=== PATIENT | male | born 1965 | race Caucasian/White ===

== ENCOUNTER 2017-03-28 11:05 | Emergency (ER) | payer OTHER ==
--- NOTE | 2017-03-28 11:30 | ED GENERAL ADULT ---
History of Present Illness General Chief Complaint: Syncope and Near-Syncope Stated Complaint: NEAR SYNCOPE Source: patient, EMS Exam Limitations: no limitations Vital Signs & Intake/Output Vital Signs & Intake/Output Vital Signs Date Time Temp Pulse Resp B/P B/P Pulse O2 O2 Flow FiO2 Mean Ox Delivery Rate 03/28 1436 68 122/80 03/28 1312 96.1 65 19 168/98 97 Room Air 03/28 1146 98 Room Air 03/28 1109 98.0 73 20 170/96 98 Room Air Allergies Coded Allergies: wheat (CILIA 03/28/17) Reconcile Medications No Known Home Medications Triage Note: PT BIBA FOR NEAR SYNCOPE AT DENTIST OFFICE. PT WAS MEDICATED WITH NOVACAINE FOR A ROOT CANAL AND STARTED TO FEEL LIGHT HEADED AND HAVE PALITATIONS. ON ARRIVAL PT HAS NO COMPLAINTS AND IS ANNOYED HE IS IN ER AND DID NOT GET HIS ROOT CANAL. PT DENIES CHEST PAIN AND SOB Triage Nurses Notes Reviewed? yes Onset: Just prior to arrival Duration: waxing and waning (20 min) Timing: remote history Injury Environment: dentist Severity: moderate Severity Numbers: 8 Modifying Factors: Improves With: other (time). HPI: Patient is a 51-year-old male with remote history of anxiety, history of celiac disease presenting to the emergency department complaint of lightheadedness, palpitations, dizziness, right posterior shoulder and bilateral neck pain that got worse morning he was at the dentist. Patient reports that he's been doing with right shoulder and right upper back pain for the past 2 months constantly. Also dealing with right-sided rib pain for the past 2 months, has been seeing a chiropractor with no relief. Denies any specific trauma but does report that he is very active. Denies any shortness of breath with this episode today. He feels like all the symptoms resolved but still remained slightly dizzy. He does report blurred vision that lasted a few seconds at the dentist but that had resolved. Patient reports no anxiety about going to the dentist. He has been looking for to getting a root canal done because he's been dealing with dental pain for the past several months. No nausea or vomiting. Denies any headaches. No actual syncopal event. The last time he saw a doctor was about a year and a half ago and it was for fatigue and they did a Lyme titer test which was negative. Patient reports he has not noticed any rashes. He does get bitten by ticks off and no. Denies any abdominal pain. Denies any diarrhea. No recent travel. No recent antibiotic use. Patient states that he was walking into the dentist office and started getting some nasal congestion, positive history of seasonal allergies and thought this was an exacerbation of that when he got out of the scar at the dentist. He walked in, started feeling hot and cold in the waiting room, proceeded to go back into the exam room, they injected him with lidocaine and then he became dizzy while he was laying on the exam table. Patient tried getting up and walking around to see if that would help with his symptoms, he also tried drinking water. Symptoms seem to come and go over a 20 minute time period. Denies any chest pain with this. Positive palpitations. Was feeling fine prior to arriving at the dentist office. Symptoms seemed to get slightly worse with positional changes. Denies any history of blood clots. Unsure of family history. Patient has positive history of skin cancer, uncertain what type which was removed on his right cheek several years ago. No complications since then. Patient also reports numbness and tingling that radiates to the right third fourth and fifth fingers intermittently that has been going on 2-3 months. (MARCELINO SPEARS) Past History Travel History Traveled to [place] past 21 day No Medical History Any Pertinent Medical History? see below for history Neurological: NONE EENT: NONE Cardiovascular: NONE Respiratory: NONE Gastrointestinal: NONE Hepatic: NONE Renal: NONE Musculoskeletal: NONE Psychiatric: NONE Endocrine: NONE Surgical History Surgical History: skin cancer removal on right cheek Psychosocial History What is your primary language Beninese Tobacco Use: Never used Family History Hx Contributory? No (MARCELINO SPEARS) Review of Systems Review of Systems Constitutional: Reports: malaise. Comments Review of systems: See HPI, All other systems negative. Constitutional, no weight loss HEENT: No visual changes no sore throat no congestion Cardiovascular: No chest pain , orthopnea or ankle swelling Skin, no jaundice no rashes Respiratory: No dyspnea cough sputum or hemoptysis GI: No nausea no vomiting : No dysuria No hematuria Muscle skeletal: Positive bilateral neck pain and right upper back pain Neurologic: No numbness no confusion, no headaches Psych: No increased stress anxiety or depression,. Heme/endocrine: No bruising no bleeding no polyuria or polydipsia Immunology: No splenectomy or history of AIDS (MARCELINO SPEARS) Physical Exam Physical Exam General Appearance: well developed/nourished, no apparent distress, alert, awake , comfortable Comments: Well-developed well-nourished person in no acute distress HEENT: Normal EENT exam, extraocular motion intact, no nystagmus. Pupils equally round and reactive to light and accommodation. Nose is atraumatic. External auditory canal and Tympanic membranes clear. Pharynx normal. No swelling or edema. Neck: Supple, no lymphadenopathy, normal range of motion without pain or tenderness, no carotid bruits to auscultation bilaterally. Back: Mild reproducible pain to palpation over the right scapular region., no CVA tenderness. Full range of motion Cardiovascular: Regular rate and rhythms no murmurs rubs or gallops, normal JVP Respiratory: Chest mild reproducible pain over the right lateral chest wall. No signs of rash or trauma in this area.. No respiratory distress.breath sounds clear to auscultation bilaterally Abdomen: Soft, nontender nondistended, no appreciable organomegaly. Normal bowel sounds. No ascites, no rebound or guarding. No palpable hernias. Extremity: No edema, no calf tenderness to palpation, normal and equal pulses. Negative Homans sign bilaterally. Muscular strength in the upper and lower extremities are equal and symmetric bilaterally, 5 out of 5. Neuro: Alert oriented x3, motor sensory normal, cranial nerves II through XII grossly intact. Cerebellar testing is unremarkable. Able to perform rapid alternating hand movements without difficulty. Heel to moser testing bilaterally unremarkable. Skin: No appreciable rash on exposed skin, skin is warm and dry.Surgical scar noted over the right maxillary region, no surrounding erythema or edema. Psych: Mood and affect is normal, memory and judgment is normal. Core Measures ACS in differential dx? No CVA/TIA Diagnosis: No Severe Sepsis Present: No Septic Shock Present: No (MARCELINO SPEARS) Progress Differential Diagnoses I considered the following diagnoses in my evaluation of the patient: CVA, TIA, orthostatic hypotension, anemia, Lyme disease, pulmonary embolus, dehydration, electrolyte abnormality, cardiac arrhythmia, cervical radiculopathy, thyroid dysfunction Plan of Care: Orders Procedure Date/time Status TROPONIN LEVEL 03/28 1530 Active Add-on Test (ER Only) 03/28 1233 Active Add-on Test (ER Only) 03/28 1131 Active Add-on Test (ER Only) 03/28 1130 Active LIPID PANEL 03/28 1122 Complete LACTIC ACID 03/28 1122 Complete D-DIMER 03/28 1122 Complete MISTAKE 03/28 1111 Active Telemetry/Ingot Car Operator 03/28 1111 Active URINALYSIS 03/28 1111 Complete TSH REFLEX 03/28 1111 Complete TROPONIN LEVEL 03/28 1111 Complete LYME TITRE 03/28 1111 Active COMPREHENSIVE METABOLIC PANEL 03/28 1111 Complete CBC WITHOUT DIFFERENTIAL 03/28 1111 Complete EKG 03/28 1109 Active Laboratory Tests 03/28/17 1135: Urine Color STRAW, Urine Clarity CLEAR, Urine pH 6.5, Ur Specific [place] 1.010, Urine Protein NEG, Urine Ketones NEG, Urine Nitrite NEG, Urine Bilirubin NEG, Urine Urobilinogen 0.2, Ur Leukocyte Esterase NEG, Ur Microscopic EXAM NOT REQUIRED, Urine Hemoglobin NEG, Urine Glucose NEG 03/28/17 1122: Anion Gap 10, Estimated GFR > 60, BUN/Creatinine Ratio 18.9, Glucose 101 H, Lactic Acid 1.2, Calcium 9.6, Total Bilirubin 0.4, AST 45, ALT 36, Alkaline Phosphatase 58, Troponin I < 0.01, Total Protein 7.2, Albumin 4.5, Globulin 2.7, Albumin/Globulin Ratio 1.7, Triglycerides 339 H, Cholesterol 244 H, LDL Cholesterol, Calc 109, HDL Cholesterol 68 H, Cholesterol/HDL Ratio 4, TSH &T3 & Free T4 Intrp 3.220, D-Dimer High Sensitivty < 200, CBC w Diff NO MAN DIFF REQ, RBC 4.35 L, MCV 92.2, MCH 31.8 H, RDW 13.2, MPV 9.7, Gran % 63.9, Lymphocytes % 26.1, Monocytes % 8.3, Eosinophils % 1.1, Basophils % 0.6, Absolute Granulocytes 3.9, Absolute Lymphocytes 1.6, Absolute Monocytes 0.5, Absolute Eosinophils 0.1, Absolute Basophils 0, PUBS MCHC 34.5 03/28/17 1111: Lyme Disease Antibody Pending Diagnostic Imaging: Viewed by Me: CT Scan. Discussed w/RAD: CT Scan. Radiology Impression: PATIENT: GABRIELLE VOGT V PRESENT AGE: 51 PATIENT ACCOUNT NO: [id number] : 65 LOCATION: [facility] ORDERING PHYSICIAN: MARCELINO CHAMBERS SERVICE DATE: 03/28/17 EXAM TYPE: CAT - CT CERV SPINE WO IV CONTRAST EXAMINATION: CT CERVICAL SPINE WITHOUT CONTRAST CLINICAL INFORMATION: Radicular pain extending down right arm. Evaluate for disc herniation. COMPARISON: None TECHNIQUE: Noncontrast multidetector CT imaging exam of cervical spine was performed using 0.625 mm collimation. In addition to the standard set of axial images, coronal and sagittal reformatted images were generated and reviewed. DLP: 386. mGy-cm FINDINGS: Cervical vertebra have normal height and alignment. No fracture, subluxation or prevertebral edema. There is degenerative subarticular sclerosis and osseous spurring at the atlantoaxial articulation. The skull base is normal. There are no aggressive lytic or suspicious blastic lesions. SPINAL LEVELS: C2-C3: Unremarkable. C3-C4: Minimal disc bulge. Central spinal canal and neural foramina are widely patent. C4-C5: Minimal disc bulge. Central spinal canal and neural foramina are widely patent. C5-C6: Mild disc bulge, mild disc space narrowing and vertebral traction osteophyte formation. Facet joints and uncovertebral joints are unremarkable. C6 -C7: Moderate degenerative disc space narrowing with endplate irregularity and traction osteophyte formation. Small posterior disc osteophyte complex indents the ventral surface of the thecal sac. Right-sided uncovertebral joint hypertrophy produces [id number] right-sided foraminal stenosis with potential impingement upon the exiting C7 nerve root. C7-T1: Moderate degenerative disc space narrowing, vertebral traction osteophyte formation and predominantly right-sided uncovertebral joint hypertrophy producing moderate right-sided foraminal stenosis. Soft tissues: Thyroid gland is unremarkable. No evidence of cervical lymphadenopathy. Incidentally noted is a well-circumscribed 1.5 x 2 cm cyst within superficial tissues of the right lateral neck posterior to the right sternocleidomastoid muscle. IMPRESSION: 1. No acute findings within the degenerated cervical spine. No fracture or malalignment. 2. Multilevel spondylosis with degenerative disc space narrowing most pronounced at C6-C7 and C7-T1. The uncovertebral joint hypertrophy produces [id number] right- sided foraminal stenosis at C6-C7 and moderate right-sided foraminal stenosis at C7-T1. 3. Incidentally noted is a well-circumscribed 1.5 x 2 cm cyst within the superficial tissues of the right lateral neck posterior to the right sternocleidomastoid muscle. DICTATED BY: JEN POSADAS MD DATE/TIME DICTATED: 03/28/171247 SCOUT SNIPER:MITCHELL DATE/TIME TRANSCRIBED:03/28/171247 CONFIDENTIAL, DO NOT COPY WITHOUT APPROPRIATE AUTHORIZATION. <Electronically signed in Other Vendor System> SIGNED BY: JEN POSADAS MD 03/28/17 1301 CXR Impression: PATIENT: GABRIELLE VOGT V PRESENT AGE: 51 PATIENT ACCOUNT NO: [id number] : 65 LOCATION: [facility] ORDERING PHYSICIAN: MARCELINO CHAMBERS SERVICE DATE: 03/28/17 EXAM TYPE: RAD - XRY-PORTABLE CHEST XRAY EXAMINATION: XR PORTABLE CHEST CLINICAL INFORMATION: Palpitations. Near syncope. COMPARISON: 03/25/2006 TECHNIQUE: Portable frontal view of the chest was obtained. FINDINGS: The lungs are well expanded. There is no focal consolidation, edema, or effusion. No pneumothorax. The cardiomediastinal silhouette is within normal limits. No acute osseous abnormality. IMPRESSION: Clear lungs. DICTATED BY: ELIAS COOK,DOM DATE/ TIME DICTATED:03/28/171304 SCOUT SNIPER:MITCHELL DATE/TIME TRANSCRIBED: 03/28/171304 CONFIDENTIAL, DO NOT COPY WITHOUT APPROPRIATE AUTHORIZATION. Initial ED EKG: NSR (72 bpm) Comments: 03/28/2017 12:15:58 PM on arrival patient is asymptomatic, neurologically intact with no focal deficits. We will continue to monitor him on telemetry, orthostatics will be performed. IV fluids initiated. This could be a reaction secondary to lidocaine, anxiety. Cannot exclude pulmonary embolus at this time although no risk factors besides age at this time. 03/28/2017 2:17:12 PM patient was informed of all lambert results and imaging study results. D-dimer is negative. Unlikely pulmonary embolus. CT of the neck does show degenerative changes and nerve root compression which could explain patient's right sided upper back and right arm pain with associated numbness and tingling intermittently. EKG is normal sinus, troponin is negative. Cholesterol including triglycerides is elevated. We will continue to monitor the patient on the nuclear monitoring technician and get a repeat troponin and EKG. Patient declining any pain medication at this time. Discussed with Dr. Flores and he agrees with plan. 03/28/2017 2:58:03 PM patient does not want to wait for a second troponin and EKG at 3:30. Patient would like to leave AGAINST MEDICAL ADVICE. He was informed of the risks. Patient given a copy of all imaging study results and lab work results. He was also given primary care physician he can follow-up with. He does not want any pain medication to go home with. Patient is stable, vitals improved blood pressure within normal range. He will follow up with a primary care physician regarding cholesterol. He'll return for any worsening symptoms or concerns. (MARCELINO SPEARS) Departure Departure Time of Disposition: 1450 Disposition: LEFT AGAINST MEDICAL ADVICE Condition: Stable Clinical Impression Primary Impression: Near syncope Secondary Impressions: Cervical radiculopathy, High cholesterol Referrals: MALENA COOK,CARLOS Rob Additional Instructions: Follow-up with your primary care physician call to make an appointment. Uric given copies of your blood work and a copy of her EKG. Return for worsening symptoms or concerns. Your cholesterol is also high today, change diet to a low fat diet. Departure Forms: Customer Survey General Discharge Information Prescriptions: Current Visit Scripts No Known Home Medications (MARCELINO SPEARS) PA/STOGIE PACKER Co-Sign Statement Statement: ED Attending supervision documentation- x I saw and evaluated the patient. I have also reviewed all the pertinent lab results and diagnostic results. I agree with the findings and the plan of care as documented in the PA's/STOGIE PACKER's documentation. [] I have reviewed the ED Record and agree with the PA's/STOGIE PACKER's documentation. [] Additions or exceptions (if any) to the PAs/STOGIE PACKER's note and plan are summarized below: [] (LUCY COOK,LEEROY) Critical Care Note Critical Care Note Critical Care Time: non-applicable (MARCELINO SPEARS)
[2017-03-28 11:45] LABS: ABSOLUTE BASOPHIL COUNT 0 /CUMM (0.0-0.2); ABSOLUTE EOSINOPHIL COUNT 0.1 /CUMM (0.0-0.7); ABSOLUTE GRANULOCYTE CT 3.9 /CUMM (1.4-6.5); ABSOLUTE LYMPH COUNT 1.6 /CUMM (1.2-3.4); ABSOLUTE MONOCYTE COUNT 0.5 /CUMM (0.10-0.60); BASOPHIL % 0.6 % (0.0-2.0); EOSINOPHIL % 1.1 % (0-5); GRANULOCYTE % 63.9 % (42.2-75.2); HEMATOCRIT 40.1 % (42-52); MEAN CORPUSCULAR HGB 31.8 PG (27.0-31.0); MEAN CORPUSCULAR HGB CONC 34.5 G/DL (33.0-37.0); MEAN CORPUSCULAR VOLUME 92.2 FL (80.0-94.0); MEAN PLATELET VOLUME 9.7 FL (7.4-10.4); PLATELET COUNT 196 /CUMM (130-400); RBC DISTRIBUTION WIDTH 13.2 % (11.5-14.5); RED BLOOD CELL CT 4.35 /CUMM (4.70-6.10); WHITE BLOOD CELL COUNT 6.1 /CUMM (4.8-10.8)
--- NOTE | 2017-03-28 13:01 | CT SCAN REPORT ---
EXAMINATION: CT CERVICAL SPINE WITHOUT CONTRAST CLINICAL INFORMATION: Radicular pain extending down right arm. Evaluate for disc herniation. COMPARISON: None TECHNIQUE: Noncontrast multidetector CT imaging exam of cervical spine was performed using 0.625 mm collimation. In addition to the standard set of axial images, coronal and sagittal reformatted images were generated and reviewed. DLP: 386. mGy-cm FINDINGS: Cervical vertebra have normal height and alignment. No fracture, subluxation or prevertebral edema. There is degenerative subarticular sclerosis and osseous spurring at the atlantoaxial articulation. The skull base is normal. There are no aggressive lytic or suspicious blastic lesions. SPINAL LEVELS: C2-C3: Unremarkable. C3-C4: Minimal disc bulge. Central spinal canal and neural foramina are widely patent. C4-C5: Minimal disc bulge. Central spinal canal and neural foramina are widely patent. C5-C6: Mild disc bulge, mild disc space narrowing and vertebral traction osteophyte formation. Facet joints and uncovertebral joints are unremarkable. C6-C7: Moderate degenerative disc space narrowing with endplate irregularity and traction osteophyte formation. Small posterior disc osteophyte complex indents the ventral surface of the thecal sac. Right-sided uncovertebral joint hypertrophy produces [id number] right-sided foraminal stenosis with potential impingement upon the exiting C7 nerve root. C7-T1: Moderate degenerative disc space narrowing, vertebral traction osteophyte formation and predominantly right-sided uncovertebral joint hypertrophy producing moderate right-sided foraminal stenosis. Soft tissues: Thyroid gland is unremarkable. No evidence of cervical lymphadenopathy. Incidentally noted is a well-circumscribed 1.5 x 2 cm cyst within superficial tissues of the right lateral neck posterior to the right sternocleidomastoid muscle. IMPRESSION: 1. No acute findings within the degenerated cervical spine. No fracture or malalignment. 2. Multilevel spondylosis with degenerative disc space narrowing most pronounced at C6-C7 and C7-T1. The uncovertebral joint hypertrophy produces [id number] right-sided foraminal stenosis at C6-C7 and moderate right-sided foraminal stenosis at C7-T1. 3. Incidentally noted is a well-circumscribed 1.5 x 2 cm cyst within the superficial tissues of the right lateral neck posterior to the right sternocleidomastoid muscle.
--- NOTE | 2017-03-28 13:09 | RADIOLOGY REPORT ---
EXAMINATION: XR PORTABLE CHEST CLINICAL INFORMATION: Palpitations. Near syncope. COMPARISON: 03/25/2006 TECHNIQUE: Portable frontal view of the chest was obtained. FINDINGS: The lungs are well expanded. There is no focal consolidation, edema, or effusion. No pneumothorax. The cardiomediastinal silhouette is within normal limits. No acute osseous abnormality. IMPRESSION: Clear lungs.
[2017-03-28 14:36] VITALS: BP 122/80
== END 2017-03-28 15:06 | disposition left against medical advice (07) ==
LOC: ERH 11:05
PROVIDERS: Physician Assistant
DX: R55 Syncope and collapse (principal); M54.12 Radiculopathy, cervical region; E78.00 Pure hypercholesterolemia, unspecified
CPT/HCPCS: 86618; 81003; 93005; 93010; 96360

== ENCOUNTER 2018-04-20 07:40 | Emergency (ER) | payer OTHER ==
[~2018-04-20] VITALS: Ht 180.3 cm; Wt 77.1 kg
--- NOTE | 2018-04-20 09:06 | ED PSYCHIATRIC COMPLAINT ---
History of Present Illness General Chief Complaint: General Adult Stated Complaint: ?PYSCH EVAL Source: patient, family, old records Exam Limitations: no limitations Vital Signs & Intake/Output Vital Signs & Intake/Output Vital Signs Date Time Temp Pulse Resp B/P B/P Pulse O2 O2 Flow FiO2 Mean Ox Delivery Rate 04/20 1420 98.7 72 18 127/82 04/20 1418 98.7 72 18 127/82 04/20 1356 98.7 72 18 127/82 100 Room Air 04/20 1106 98.3 66 18 128/84 04/20 1106 98.3 66 18 128/84 100 Room Air 04/20 0937 97.8 68 18 124/90 04/20 0937 97.8 68 18 124/90 99 Room Air Room Air 04/20 0932 97.6 76 18 154/91 04/20 0818 97.6 76 18 154/91 99 Room Air 04/20 0745 97.6 105 20 168/81 100 Room Air Allergies Coded Allergies: diphenhydramine (From BENADRYL) (RAPID HEART BEAT, ANXIOUS 04/20/18) gluten (CELIAC 04/20/18) tree nut (DOESNT AGREE WITH ME 04/20/18) wheat (CILIAC 05/16/17) Reconcile Medications Ascorbic Acid (Vitamin C) (Unknown Strength) TABLET (Unknown Dose) PO DAILY SUPPLEMENT (Reported) Vitamin B Complex 1 EACH CAPSULE 1 CAP PO DAILY SUPPLEMENT (Reported) Triage Note: PT STATES HE HAS BEEN UNDER A LOT OF STRESS AND THIS MORNING HE FELT WEAK, PAIN IN BOTH LEGS AND IN HIS LEFT SIDE. PT STATES HIS RIGHT ARM IS NUMB AND HE FEELS LIKE HE IS HAVING A NERVOUS BREAKDOWN. PT DENIES SI/HI Triage Nurses Notes Reviewed? yes Onset: 2 weeks Duration: constant, continues in ED, getting worse Timing: recent history Severity: severe Associated Symptoms: anxiety, impaired concentration, insomnia HPI: 2-3 weeks prior to admission patient reports being under a lot of stress and has begun drinking alcohol and smoking cigarettes heavily. He is unable to sleep with increasing anxiety and crying. Denies fever chills nausea vomiting diarrhea abdominal pain chest pain shortness breath headache dysuria rash bleeding suicidal ideation homicidal ideation hallucination. Past History Travel History Traveled to [place] past 21 day No Medical History Any Pertinent Medical History? 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 No Review of Systems Review of Systems Constitutional: Reports: no symptoms. EENTM: Reports: no symptoms. Respiratory: Reports: no symptoms. Cardiovascular: Reports: no symptoms. GI: Reports: no symptoms. Genitourinary: Reports: no symptoms. Musculoskeletal: Reports: no symptoms. Skin: Reports: no symptoms. Neurological/Psychological: Reports: see HPI, anxiety, confusion, depressed, emotional problems. Hematologic/Endocrine: Reports: no symptoms. Immunologic/Allergic: Reports: no symptoms. All Other Systems: Reviewed and Negative Physical Exam Physical Exam General Appearance: well developed/nourished, alert, awake, anxious, moderate distress Head: atraumatic, normal appearance Eyes: Bilateral: normal appearance, PERRL, EOMI. 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 patient not suicidal Progress Differential Diagnosis: drug intoxication, drug overdose, drug withdrawal, electrolyte abnormality, hypoglycemia Plan of Care: Orders Procedure Date/time Status Regular Diet 04/20 L Active CIWA 04/20 854 Active URINE DRUG SCREEN FOR ER ONLY 04/20 854 Complete TSH REFLEX 04/20 854 Complete ETHANOL 04/20 854 Complete COMPREHENSIVE METABOLIC PANEL 04/20 854 Complete CBC WITHOUT DIFFERENTIAL 04/20 854 Complete ED CRISIS PSYCH CONSULT 04/20 854 Active Current Medications Sig/Esvin Start time Last Medication Dose Stop Time Status Admin Folic Acid 1 MG DAILY 07/07 0900 UNVr 04/20 (Folic Acid) 0932 Multivitamins 1 TAB DAILY 04/20 900 UNVr 04/20 (Theragran Vitamins) 0932 Thiamine HCl 100 MG DAILY 04/20 900 UNVr 04/20 (Vitamin B1) 0932 Clonidine 0.1 MG Q8 04/20 0852 UNVr 04/20 (Catapres) 1418 Gabapentin 300 MG Q8 04/20 0852 UNVr 04/20 (Neurontin) 1418 Laboratory Tests 04/20/18 1058: Urine Opiates Screen < 100, Methadone Screen < 40, Barbiturate Screen < 60, Ur Phencyclidine Scrn < 6.00, Amphetamines Screen < 100, U Benzodiazepines Scrn < 85, Urine Cocaine Screen < 50, Urine Cannabis Screen < 5.00 04/20/18 09: Anion Gap 13, Estimated GFR > 60, BUN/Creatinine Ratio 14.0, Glucose 103 H, Calcium 9.5, Total Bilirubin 0.4, AST 45, ALT 32, Alkaline Phosphatase 53, Total Protein 7.8, Albumin 4.9, Globulin 2.9, Albumin/Globulin Ratio 1.7, TSH &T3 & Free T4 Intrp 1.240, CBC w Diff NO MAN DIFF REQ, RBC 4.56 L, MCV 94.1 H, MCH 32.0 H, MCHC 34.1, RDW 12.8, MPV 9.3, Gran % 66.0, Lymphocytes % 24.8, Monocytes % 8.5, Eosinophils % 0.3, Basophils % 0.4, Absolute Granulocytes 2.6, Absolute Lymphocytes 1.0 L, Absolute Monocytes 0.3, Absolute Eosinophils 0, Absolute Basophils 0, Serum Alcohol < 10.0 Comments: Cleared by psychiatry for discharge. Departure Departure Time of Disposition: 1501 Disposition: HOME OR SELF CARE Condition: Stable Clinical Impression Primary Impression: Major depression Secondary Impressions: Alcohol abuse Referrals: Patient Has No Primary Care Dr (PCP/Family) Departure Forms: Customer Survey General Discharge Information Prescriptions: Current Visit Scripts Gabapentin 1 CAP PO TID #15 CAP Clonidine HCl 1 TAB PO TID #15 TAB
[2018-04-20 09:16] LABS: ABSOLUTE BASOPHIL COUNT 0 /CUMM (0.0-0.2); ABSOLUTE EOSINOPHIL COUNT 0 /CUMM (0.0-0.7); ABSOLUTE GRANULOCYTE CT 2.6 /CUMM (1.4-6.5); ABSOLUTE MONOCYTE COUNT 0.3 /CUMM (0.10-0.60); BASOPHIL % 0.4 % (0.0-2.0); EOSINOPHIL % 0.3 % (0-5); HEMATOCRIT 42.9 % (42-52); MEAN CORPUSCULAR HGB CONC 34.1 G/DL (33.0-37.0); MEAN CORPUSCULAR VOLUME 94.1 FL (80.0-94.0); MEAN PLATELET VOLUME 9.3 FL (7.4-10.4); PLATELET COUNT 241 /CUMM (130-400); RBC DISTRIBUTION WIDTH 12.8 % (11.5-14.5); RED BLOOD CELL CT 4.56 /CUMM (4.70-6.10)
[2018-04-20] MEDS ORDERED: VITAMIN C1000 M4 PO (11:52)
[2018-04-20] MEDS ORDERED: VITAMIN B COMP1 EACH PO (11:52)
[2018-04-20 14:20] VITALS: BP 127/82
[2018-04-20] MEDS ORDERED: GABAPENTIN300 M2 PO (15:03)
[2018-04-20] MEDS ORDERED: CLONIDINE HCL0.1 MG PO (15:03)
--- NOTE | 2018-04-20 16:16 | ED PSYCH CRISIS CONSULTATION ---
Crisis Consult Basic Assessment Date of Consult: 04/20/18 Responsible Person/Accompanied By: Patient self presented to ED Insurance Authorization: Insurance #1: Insurance name: NASIMA BARNETT Phone number: Policy number: [id number] Group number: Authorization number: ED Provider: Patient's ED Provider: Justin Streeter MD Primary Care Physician: Patient's PCP: Patient Has No Primary Care Dr PCP's Phone Number: Current Psychiatrist: None reported Chief Complaint: Psychiatric Related Complaint Patient's Quote: " I've been stressed for a long time." Present Illness: Pt is a 52 y.o. male who self presented to ED and reporting depression and increased alcohol use. Pt denies SI/HI and denies a hx of suicidal ideation. Pt reports that he is constantly worried and stressed. Pt reports that this has been ongoing since 2006 when he experienced a significant financial loss and separation in his marriage. 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 Pt has been unemployed since doing side jobs when available. Pt has three adult children and currently is having relationship discord specifically with his middle son. Pt reports arguing frequently with him mostly finance related. Pt reports that he has been abusing alcohol over the past month and has tried to cut back over the last week. His last drink was last evening and he reports having 4 glasses of wine. Pt reports attempting therapy a few years ago and also was seeing a psychiatrist briefly but is unsure what medication he was on. He has not been on medications since and states he did not like the side effects he experienced when he was on medication. Pt reports that he lives alone currently, his was previously living with him but moved out recently due to increasing arguments. Pt is fearful that he is going to be evicted from his house soon due to recent foreclosure on his house. Crisis informed pt of 211 as resource if unable to temporarily stay with a friend or family member. Crisis spoke to pt's , Lauren. Lauren reported that she feels pt can be very manipulative and has difficulty accepting ownership for his actions and behaviors. She reported that the conflict between him and their son has been very overwhelming for the whole family and she suspects he has been secretly drinking because he does not do it openly. She stated that overall he appears depressed and his mood is unstable. Ripley-Suicide Severity Rating Scale was completed during evaluation. Activating events: Pending homelessness. Clinical status: Substance abuse, anxiety, perceived burden on family, aggressive behavior towards. Protective factors: Identifies reasons for living, responsibility to family. Patient's Address: [place] [address] Other Phone Number: Who Do You Live With? Patient/Self Family/Informants Interviewed: See present illness Allergies - Coded Allergies: diphenhydramine (From BENADRYL) (RAPID HEART BEAT, ANXIOUS 04/20/18) gluten (CELIAC 04/20/18) tree nut (DOESNT AGREE WITH ME 04/20/18) wheat (CILIAC 05/16/17) Current Medications - Scheduled Medications Ascorbic Acid (Vitamin C) (Unknown Strength) TABLET (Unknown Dose) PO DAILY SUPPLEMENT (Reported) Entered as Reported by Daysi Layne on 04/20/18 1152 Clonidine HCl 0.1 MG TABLET 1 TAB PO TID alcohol dependence #15 TAB Prescribed by Justin Streeter MD on 04/20/18 Gabapentin 300 MG CAPSULE 1 CAP PO TID alcohol dependence #15 CAP Prescribed by Justin Streeter MD on 04/20/18 Vitamin B Complex 1 EACH CAPSULE 1 CAP PO DAILY SUPPLEMENT (Reported) Entered as Reported by Daysi Layne on 04/20/18 1152 Past History Past Medical History Neurological: NONE EENT: NONE Cardiovascular: NONE Respiratory: NONE Gastrointestinal: NONE Hepatic: NONE Renal: NONE Musculoskeletal: NONE Psychiatric: anxiety Endocrine: NONE Blood Disorders: NONE 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 Past Surgical History Surgical History: skin cancer removal on right cheek Psychosocial History Strengths/Capabilities: Able to ask for help, wants help Psychiatric Treatment History Psych Treatment Psychiatric Treatment Yes Inpatient Treatment No Outpatient Treatment Yes Location of Treatment Unknown Diagnosis by History: No known psych diagnosis Substance Use/Abuse History Drug Use/Abuse Substances Used/Abused Yes Substance Used/Abused Alcohol First Use unknown Last Used last night How much used/taken 4 glasses of wine How often multiple times a week Route of use oral Substance Abuse Treatment Substance Abuse Treatment Past Substance Abuse [place] No Current Mental Status Mental Status Orientation: Person, Place, Situation Affect: Anxious, Sad Speech: WNL Neuro-vegetative: Helpless, Loss of Interest, Sleep Disturbance Appearance Appearance- Dress/Hygiene: Good hygiene, good eye contact, easy to engage in conversation. Behaviors Thought Process: WNL Thought Content: WNL Memory: WNL Insight: Fair SI/HI Risk Assessment Past Suicidal Ideation/Attempts No Current Suicidal Ideation/Att No Past Homicidal Ideation/Att: No Current Homicidal Ideation/Attempts No Degree of Intent: None Gravely Disabled: Poor Impulse Control Risk Factors: high anxiety/distress, substance abuse, isolate/no social support, poor impulse control, lives alone, male Lethality Ratin PTSD Checklist PTSD Done? patient declined ED Management Sitter: Yes Restraints: No DSM5/PS Stressors/Medical Prob Diagnosis' (DSM 5, Stressors, Medical): Unspecified depressive d/o F32.9 Alcol use d/o, moderate F10.20 Current GAF: 50 Departure Disposition Psych Medical Clearance Date: 04/20/18 Medically Cleared at: 1300 Time Started: 1300 Time Ended: 1400 Psychiatrist Consulted: Date Disposition Established: 04/20/18 Time Disposition Established: 1330 Plan for Disposition - Modality: IOP Facility: [facility] Follow-up Appt Date: 04/24/18 Follow-Up Appt Time: 929 Rationale for Disposition: Denies SI/HI/AH/VH. Agreed to follow up with IOP. Referrals Patient Has No Primary Care Dr (PCP/Family)
== END 2018-04-20 15:15 ==
LOC: ERH 07:40
PROVIDERS: Emergency Medicine
DX: F32.9 Major depressive disorder, single episode, unspecified (principal); F10.10 Alcohol abuse, uncomplicated
CPT/HCPCS: 80307; G0463; G0480; J3490